=== PATIENT | female | born 1960 | race Caucasian/White ===

== ENCOUNTER 2018-03-17 19:39 | Emergency (ER) | payer OTHER ==
[2018-03-17] MEDS ORDERED: NS 1,000 ML IV ONE ×2 (19:48→21:02)
--- NOTE | 2018-03-17 19:51 | EDPHY ---
H & P Time Seen by Provider: 03/17/18 19:49 HPI/ROS: HPI CHIEF COMPLAINT: Syncope at restaurant. HISTORY OF PRESENT ILLNESS: Patient is a 57-year-old female, she is otherwise healthy, without any significant medical history she presents emergency room after she had a syncopal episode at a restaurant. She was a local restaurant down she had a glass and half of white wine, she got up to use the bathroom after eating a brief part of her meal after getting up she felt lightheaded she got to the bathroom and then the next thing she remembers is waking up on the ground. She did have head strike. She struck the ground with the right side of her forehead. She had no preceding symptoms except some lightheadedness/ nausea. Denies any chest pain or shortness of breath or palpitations. There was no seizure activity reported by bystanders. She had no postictal state. No bowel bladder incontinence, she did vomited multiple times. Patient reports a normal day today. She states she stay well-hydrated. No strenuous exercise. Has felt well today. Past Medical History: Denies medical history Past Surgical History: Denies surgical history Social History: Denies drugs alcohol tobacco. Family History: Noncontributory ROS REVIEW OF SYSTEMS: A comprehensive 10 point review of systems is otherwise negative aside from elements mentioned in the history of present illness. Exam Constitutional triage nursing summary reviewed, vital signs reviewed, awake/ alert. Eyes normal conjunctivae and sclera, EOMI, PERRLA. HENT head/neck atraumatic except for a mild small right forehead hematoma, otherwise atraumatic head and neck exam moist mucus membranes, no epistaxis, neck supple/ no meningismus, no raccoon eyes. Respiratory clear to auscultation bilaterally, normal breath sounds, no respiratory distress, no wheezing. Cardiovascular rate normal, regular rhythm, no murmur, no edema, distal pulses normal. Gastrointestinal soft, non-tender, no rebound, no guarding, normal bowel sounds, no distension, no pulsatile mass. Genitourinary no CVA tenderness. Musculoskeletal no midline vertebral tenderness, full range of motion, no calf swelling, no tenderness of extremities, no meningismus, good pulses, neurovascularly intact. Skin pink, warm, & dry, no rash, skin atraumatic. Neurologic awake, alert and oriented x 3, AAOx3, moves all 4 extremities equally, motor intact, sensory intact, CN II-XII intact, normal cerebellar, normal vision, normal speech. Psychiatric normal mood/affect. Heme/Lymph/Immune no lymphadenopathy. Differential diagnosis includes but is not limited to: Syncope, vasovagal syncope, other static syncope, intracranial bleed ACS, atypical chest pain, pneumothorax, pneumonia, pulmonary embolism, aortic dissection, congestive heart failure, tumor, musculoskeletal pain, esophageal pain, GERD, peptic ulcer disease, pancreatitis Medical Decision Making: Plan for this patient IV establishment with IV fluid bolus 1 L normal saline, EKG, troponin, D-dimer, CT scan head without contrast chest x-ray, and re-evaluate. Re-evaluation: EKG interpretation by me on record in [facility] system. Impression time of EKG 1948, this is sinus rhythm rate of [address] elevation no ST depression no signs of cardiac arrhythmia. No ischemic change on the EKG. CT scan head without contrast negative for acute traumatic injury. No bleed. Called to me by Dr. Healy. 2103: After further discussion with the patient. She is feeling much better after IV fluids. She has been on the hospital monitor the entire time without any signs of cardiac arrhythmia. Patient's D-dimer was positive, in the setting of syncope I did recommend that she has a CT angiogram of her chest. Had a very long discussion with risk versus benefit of CT angiogram of her chest. Discussed with her that she does have a positive D-dimer however it is only marginally elevated. In the setting of syncope without any other great cause I do recommend she get CT angiogram of her chest rule out PE. She is comfortable this plan and agrees for CT scan. She understands the risks versus benefits. The CT angiogram of the chest: Negative for acute pulmonary embolism. Called to me by Dr. Tamia Healy EKG interpretation by me on record in [facility] system. Impression time of EKG 2217, this is sinus rhythm, no acute ischemic change. No ST elevation no ST depression no significant T-wave abnormalities. No signs of cardiac arrhythmia. Unchanged from previous EKG 2nd troponin 2nd EKG are nonischemic. Reason for the 2nd EKG and 2nd troponin was syncope. The patient does not have any chest pain or shortness of breath. Given the patient's 2nd EKG is nonischemic and unchanged from her previous EKG and there has been no evidence of cardiac arrhythmia 2-troponins and a CT angiogram of the chest that showed no evidence of PE. And the patient is feeling much better after IV fluids I feel comfortable allowing her to go home. Patient understands return emergency room she develops another syncopal Ed chest pain or shortness of breath. She is comfortable this plan. She ambulated well throughout the emergency room without difficulty. Unclear etiology of syncope. Recommend she rest, stay well-hydrated. Return to the ER for worsening symptoms. Source: Patient, EMS Constitutional: Initial Vital Signs Temperature (C) 36.8 C 03/17/18 20:08 Heart Rate 69 03/17/18 20:08 Respiratory Rate 18 03/17/18 20:08 Blood Pressure 111/73 03/17/18 20:08 O2 Sat (%) 94 03/17/18 20:08 O2 Delivery Mode Room Air Allergies/Adverse Reactions: No Known Allergies Allergy (Unverified 03/17/18 20:10) Home Medications: Medication Instructions Recorded [facility] 03/17/18 Medical Decision Making - Diagnostics Imaging Results: Imaging Impressions Chest X-Ray 03/17/18 19:48 Impression: Nothing focal. Head CT 03/17/18 19:49 Impression: Normal. Findings and recommendations discussed with Travis Murcia MD at 8:21 PM hour , 03/17/2018. Final report concurs with initial preliminary interpretation. Chest/Thorax CTA 03/17/18 21:02 Impression: 1. No pulmonary embolism. 2. Incidental left upper lobe granuloma. No noncalcified pulmonary nodules. Findings and recommendations discussed with Travis Murcia MD at 10:11 PM hour, 03/17/2018. Final report concurs with initial preliminary interpretation. - Data Points Laboratory Results: Laboratory Results 03/17/18 19:39 03/17/18 19:39 03/17/18 03/17/18 03/17/18 22:28 20:28 19:39 WBC RBC Hgb Hct MCV MCH MCHC RDW Plt Count MPV Neut % (Auto) Lymph % (Auto) [place] % (Auto) Eos % (Auto) Baso % (Auto) Nucleat RBC Rel Count Absolute Neuts (auto) Absolute Lymphs (auto) Absolute Monos (auto) Absolute Eos (auto) Absolute Basos (auto) Absolute Nucleated RBC Immature Gran % Immature Gran # PT INR APTT D-Dimer Sodium 141 mEq/L mEq/L (135-145) Potassium 3.7 mEq/L mEq/L (3.3-5.0) Chloride 104 mEq/L mEq/L (97-110) Carbon Dioxide 22 mEq/l mEq/l (22-31) Anion Gap 15 mEq/L mEq/L (8-16) BUN 20 mg/dL mg/dL (7-23) Creatinine 0.8 mg/dL mg/dL (0.6-1.0) Estimated GFR > 60 Glucose 125 mg/dL H mg/dL (70-100) Calcium 9.6 mg/dL mg/dL (8.5-10.4) Magnesium 2.1 mg/dL mg/dL (1.6-2.3) Total Bilirubin 0.6 mg/dL mg/dL (0.1-1.4) Conjugated Bilirubin 0.3 mg/dL mg/dL (0.0-0.5) Unconjugated Bilirubin 0.3 mg/dL mg/dL (0.0-1.1) AST 47 IU/L H IU/L (14-46) ALT 49 IU/L IU/L (9-52) Alkaline Phosphatase 64 IU/L IU/L (38-126) POC Troponin I 0.01 ng/mL ng/mL 0.01 ng/mL ng/mL (0.00-0.08) (0.00-0.08) NT-Pro-B Natriuret Pep 36 pg/mL pg/mL (0-125) Total Protein 6.8 g/dL g/dL (6.3-8.2) Albumin 4.3 g/dL g/dL (3.5-5.0) Ethyl Alcohol 13 mg/dL H mg/dL (0-10) 03/17/18 03/17/18 19:39 19:39 WBC 7.71 10^3/uL 10^3/uL (3.80-9.50) RBC 4.64 10^6/uL 10^6/uL (4.18-5.33) Hgb 14.7 g/dL g/dL (12.6-16.3) Hct 43.4 % % (38.0-47.0) MCV 93.5 fL fL (81.5-99.8) MCH 31.7 pg pg (27.9-34.1) MCHC 33.9 g/dL g/dL (32.4-36.7) RDW 12.3 % % (11.5-15.2) Plt Count 255 10^3/uL 10^3/uL (150-400) MPV 9.6 fL fL (8.7-11.7) Neut % (Auto) 79.1 % H % (39.3-74.2) Lymph % (Auto) 13.2 % L % (15.0-45.0) [place] % (Auto) 5.2 % % (4.5-13.0) Eos % (Auto) 1.9 % % (0.6-7.6) Baso % (Auto) 0.3 % % (0.3-1.7) Nucleat RBC Rel Count 0.0 % % (0.0-0.2) Absolute Neuts (auto) 6.10 10^3/uL 10^3/uL (1.70-6.50) Absolute Lymphs (auto) 1.02 10^3/uL 10^3/uL (1.00-3.00) Absolute Monos (auto) 0.40 10^3/uL 10^3/uL (0.30-0.80) Absolute Eos (auto) 0.15 10^3/uL 10^3/uL (0.03-0.40) Absolute Basos (auto) 0.02 10^3/uL 10^3/uL (0.02-0.10) Absolute Nucleated RBC 0.00 10^3/uL 10^3/uL (0-0.01) Immature Gran % 0.3 % % (0.0-1.1) Immature Gran # 0.02 10^3/uL 10^3/uL (0.00-0.10) PT 12.9 SEC SEC (12.0-15.0) INR 0.95 (0.83-1.16) APTT 24.6 SEC SEC (23.0-38.0) D-Dimer 0.55 ug/mLFEU H ug/mLFEU (0.00-0.50) Sodium Potassium Chloride Carbon Dioxide Anion Gap BUN Creatinine Estimated GFR Glucose Calcium Magnesium Total Bilirubin Conjugated Bilirubin Unconjugated Bilirubin AST ALT Alkaline Phosphatase POC Troponin I NT-Pro-B Natriuret Pep Total Protein Albumin Ethyl Alcohol Medications Given: Discontinued Medications Sodium Chloride (Ns) 1,000 mls @ 0 mls/hr IV EDNOW ONE; Wide Open PRN Reason: Protocol Stop: 03/17/18 19:49 Last Admin: 03/17/18 20:10 Dose: 1,000 mls Sodium Chloride (Ns) 1,000 mls @ 0 mls/hr IV ONCE ONE PRN Reason: Wide Open Stop: 03/17/18 21:03 Last Admin: 03/17/18 21:34 Dose: 1,000 mls Point of Care Test Results: Chemistry 03/17/18 03/17/18 22:28 20:28 POC Troponin I 0.01 ng/mL ng/mL 0.01 ng/mL ng/mL (0.00-0.08) (0.00-0.08) Departure - Departure Disposition: Home, Routine, Self-Care Clinical Impression: Syncope Condition: Good Instructions: Syncope (ED) Additional Instructions: 1. Return emergency room if he develops any worsening symptoms includes chest pain, shortness of breath or have another passing out episode. 2. Stay well-hydrated drink lots of fluids. Rest and take it easy. 3. Follow up with her primary care doctor. Return to the ER for worsening symptoms. Referrals: Patient,NotPresent [Unknown] - As per Instructions
--- NOTE | 2018-03-17 19:51 | CPEKG ---
Heart Rate: 67 RR Interval: 896 P-R Interval: 136 QRSD Interval: 96 QT Interval: 416 QTC Interval: 439 P [place]: 16 QRS [place]: -2 T Wave [place]: 47 EKG Severity - NORMAL ECG - EKG Impression: SINUS RHYTHM Electronically Signed By: Travis Murcia 17-Mar-2018 23:16:03
[2018-03-17 20:00] LABS: PLATELET COUNT 255 10^3/uL (150-400)
[2018-03-17 20:12] LABS: INR 0.95 (0.83-1.16); PROTIME(PATIENT) 12.9 SEC (12.0-15.0)
[2018-03-17] MEDS ORDERED: IOPAMIDOL (ISOVUE 370) 100 ML BTL IV ONE (21:09)
--- NOTE | 2018-03-17 22:19 | CPEKG ---
Heart Rate: 82 RR Interval: 732 P-R Interval: 152 QRSD Interval: 90 QT Interval: 400 QTC Interval: 468 P [place]: 53 QRS [place]: -20 T Wave [place]: 38 EKG Severity - OTHERWISE NORMAL ECG - EKG Impression: SINUS RHYTHM EKG Impression: BORDERLINE LEFT AXIS DEVIATION Electronically Signed By: Travis Murcia 17-Mar-2018 23:16:03
[2018-03-17 23:25] VITALS: BP 140/91
== END 2018-03-17 23:24 | disposition home or self-care (01) ==
LOC: EDUNIT#
DX: R55 Syncope and collapse (principal); E86.9 Volume depletion, unspecified
CPT/HCPCS: 84484-PO; G0480; Q9967